=== PATIENT | male | born 1945 | race Hispanic/Latino ===

== ENCOUNTER 2017-08-18 01:03 | Inpatient (IN) | payer OTHER ==
[2017-08-18] MEDS ORDERED: Calcium Gluc 4.6 MEQ/10 ML (100 MG/ML) ONE (01:17)
[2017-08-18 01:24] LABS: Anion Gap 11 mmol/L (-14-95); Lactate 1.44 mmol/L (0.50-2.20); POC Est. GFR-MDRD-African-Amer Greater than 60; POC Estimated GFR-MDRD Greater than 60; T. Carbon Dioxide 31.6 mmol/L (1.0-85.0); pH (Venous) 7.413 (7.35-7.45); vO2 Saturation-calc 72.1 % (0.0-100.0)
[2017-08-18] MEDS ORDERED: Ondansetron HCl/PF 4 MG/2 ML Vial ONE (01:27)
[2017-08-18 01:38] LABS: PTT 28.3 SEC (22.9-36.1); Prothrombin Time 14.6 SEC (12.0-14.7)
[2017-08-18 01:46] LABS: Lactic Acid - Sepsis 2.1 mmol/L (0.5-2.2)
[2017-08-18 01:50] LABS: Troponin I 0.138 ng/mL (< 0.028)
[2017-08-18 01:53] LABS: #Basophils 0.1 thou/uL (0.0-0.2); #Eosinphils 0.3 thou/uL (0.0-0.7); #Lymphocytes 1.6 thou/uL (1.20-3.40); #Neutrophils 5.8 thou/uL (1.40-6.50); %Basophils 0.7 % (0.0-1.0); %Lymphocytes 17.9 % (21.0-51.0); %Monocytes 11.1 % (0.0-10.0); Anisocytosis SLIGHT = 6-15 cells (100X) (0-5/hpf); Hematocrit 44.9 % (42.0-52.0); Mean Platelet Volume 9.7 fL (7.4-10.4); Red Blood Cell (RBC) Count 4.62 mill/uL (4.70-6.10); White Blood Cell (WBC) Count 8.7 thou/uL (4.8-10.8)
[2017-08-18] MEDS ORDERED: Enoxaparin Sodium 80 MG/0.8 ML SYRINGE ONE (02:03)
[2017-08-18 02:38] LABS: ALT (SGPT) 56 U/L (8-55); AST (SGOT) 54 U/L (5-34); Alkaline Phosphatase 155 U/L (40-150); Anion Gap 11 mmol/L (10-20); BUN (Urea Nitrogen) 27 mg/dL (8.4-25.7); Bilirubin, Total 0.7 mg/dL (0.2-1.2); CK (CPK) 40 U/L (30-200); Calc. Creatinine Clearance 0 mL/min (70-130); Calcium 10.2 mg/dL (7.8-10.44); Carbon Dioxide 29 mmol/L (23-31); Chloride 105 mmol/L (98-107); Estimated GFR-MDRD 63; Globulin 2.6 g/dL (2.4-3.5); Lipase 13 U/L (8-78)
[2017-08-18] MEDS ORDERED: Ondansetron ODT 4 MG TAB SL PRN (03:30)
[2017-08-18] MEDS ORDERED: Acetaminophen 325 MG TAB PO PRN ×2 (03:30→03:53)
[2017-08-18] MEDS ORDERED: Ondansetron HCl/PF 4 MG/2 ML Vial IVP PRN ×2 (03:30→03:53)
[2017-08-18 03:45] VITALS: BMI 30.4
[2017-08-18] MEDS ORDERED: HumaLOG 300 UNITS/3 ML VIAL SC PRN ×2 (03:53)
[2017-08-18] MEDS ORDERED: Dextrose 50% Abboject 50 ML SYRINGE SLOW IVP PRN (03:53)
[2017-08-18] MEDS ORDERED: Dextrose 5% in Water 1,000 ML IV PRN (03:53)
[2017-08-18] MEDS ORDERED: Ondansetron ODT 4 MG TAB PO PRN (03:53)
--- NOTE | 2017-08-18 03:56 | ER ---
DATE OF SERVICE: 08/18/2017 Please refer to the patient's electronic medical record for further details of his visit. In summary, the patient presents from [facility] with a complaint of tachycardia and generalized weakness . He has some very mild chest pain as well. He reports that his symptoms have been present for 2 da ys and he has been monitored at the [facility] where they reported that he has had persistent t achycardia during that time frame. His rate has been in the 120-130 range. He states that his AICD fired approximately 3-4 days ago, near the onset of his current symptoms. It has not fired again sin ce then. On arrival, the patient is awake and alert, able to answer his name and in no respiratory distress. His monitor shows a wide-complex tachycardia without P waves. His 12-lead EKG reveals the same, with a prolonged QT segment as well. The patient was given calcium and a concern for possible hyperkalem ia, which actually converted him to a sinus rhythm for a brief period of time. Labs confirm a normal potassium, normal pH, and no significant electrolyte disturbance. During the time of sinus rhythm, a repeat EKG was performed, which shows a right bundle branch block morphology. This is new compared with prior tracing. His troponin was noted to be abnormal at 0.138, not consistent with non-ST elev ation [place], we will require trending. His BNP was elevated as well, with chest x-ray findings consiste nt with mild vascular congestion. He was not in respiratory distress and was not hypoxic at any poin t during his ER stay. His blood pressure was borderline on arrival and improved significantly when c onverted to a sinus rhythm. However, it was not less than 90 at any point. I do not suspect underly ing infectious process. I discussed the case with Dr. Marlon Rankin, the Cardiology Service, who recomme nds observational management without specific intervention at this point. I also discussed the case with Dr. Ritter of the Family Medicine Residency Service, who will admit the patient overnight. At t his time, the patient's blood pressure is 110/72, heart rate 123, and O2 sat is 98% on room air. He is stable at the time of admission, with a guarded prognosis given his multiple comorbidities. He is not stable for transport to [facility] in [place] because of the possibility of decompensation.
[2017-08-18] MEDS ORDERED: PROVENTIL INHALER 6.7 G (200 INHALATIONS) INH PRN (04:17)
[2017-08-18 05:38] LABS: Troponin I 0.184 ng/mL (< 0.028)
[2017-08-18] MEDS ORDERED: Beclomethasone 80 mcg 120 PUFF/8.7 GM AER INH SCH (06:30)
--- NOTE | 2017-08-18 07:15 | HP-2 ---
CODE STATUS: FULL. PRIMARY CARE PHYSICIAN: City call. ATTENDING: Dr. Krishan Rivera RESIDENT: Mary Ritter D.O. HISTORIAN: Patient. CHIEF COMPLAINT: AICD event/fast heart rate. HISTORY OF PRESENT ILLNESS: A 72-year-old male with past medical history of coronary artery disease, status post CABG 2 vessel and AICD placement. He was at [facility] with complaint of an AICD event back in July and again 2-3 days ago, along with a rapid heart rate. Per patient, has been feeling dizzy spells since July where he feels like he is going to pass out. Also reports an episode in July where his AICD shocked him. The patient denies feeling chest pain at this time or any palpitations. Again, on 08/14/2017, a couple of days ago, he felt his AICD shock him. Again, reports no symptoms at the time of this. Since then he reports generalized weakness and continues to have dizzy spells that cause him to feel like he is going to pass out. Denies chest pain or shortness of breath. Does report bilateral arm pain. EMS gave 25 mg of metoprolol and 600 mg 1 liter normal saline en route. When he got to the ED, he was found to have a wide complex tachycardia, rate of 130s. He received therapeutic Lovenox as well as normal saline, calcium gluconate and aspirin in the ED. Dr. Rankin was called and requested the patient be inpatient and reports she will follow up with the patient. PAST MEDICAL HISTORY: 1. Diabetes. 2. Hypertension. 3. Chronic obstructive pulmonary disease. 4. Depression. 5. Coronary artery disease, status post CABG and AICD. PAST SURGICAL HISTORY: 1. AICD placement 2013. 2. CABG 2 vessel. 3. Cholecystectomy. ALLERGIES: SULFA. MEDICATIONS: 1. Aspirin 81 mg daily. 2. Atorvastatin 80 mg daily. 3. Carvedilol 12.5 mg b.i.d. 4. Clopidogrel 75 mg daily. 5. Lasix 40 mg b.i.d. 6. Isosorbide mononitrate 30 mg daily. 7. Lisinopril 2.5 mg daily. 8. Magnesium oxide 400 mg daily. 9. Metoprolol 25 mg daily. 10. Novolin N 10 units in the morning, 7 units p.m. 11. Novolin R 4 units premeal. 12. Proventil 90 mcg p.r.n. 13. Qvar 80 mcg 1 puff b.i.d. 14. Sertraline 50 mg daily. SOCIAL HISTORY: Past tobacco use, quit 20 years ago, used to smoke 1-1/2 packs per day for about 20 years. Alcohol use; used to drink 3-4 whiskey drinks per day. Has not drank in "years". Denies drug use. REVIEW OF SYSTEMS: A 12-point review of systems was performed and found to be significant for denying fever and chills. No shortness of breath, no chest pain , no nausea or vomiting. No syncope. The patient does report palpitations, pain, bilateral arm pain and generalized weakness. All other systems are negative. PHYSICAL EXAMINATION: VITAL SIGNS: Blood pressure 110/72, pulse 123, respiratory rate 16, T-max 98.0 , pulse ox 98% on room air, current weight 84.82 kilograms. GENERAL: The patient is alert and oriented x1, no acute distress, well- nourished, appropriately interactive. EYES: PERRLA, EOMI. ENT: Oropharynx within normal limits. Mallampati 4. NECK: Supple, without lymphadenopathy. CARDIOVASCULAR: Tachycardia, no murmurs or gallops. Radial pulses 2+. RESPIRATORY: Normal effort, no retractions, clear to auscultation bilaterally. Lung sounds are distant. SKIN: Warm and dry. ABDOMEN: Soft, nontender, bowel sounds present. EXTREMITIES: No cyanosis or edema. MUSCULOSKELETAL: Structure within normal limits. Muscle strength 5/5 in upper and lower extremities. NEUROLOGIC: No focal deficits. GCS 15. PSYCHIATRIC: Appropriate. LABORATORY DATA: CBC performed, white blood cell count 8.7, hemoglobin 14.6, hematocrit 44.9, platelets 113, 67.3% neutrophils. MCV of 97.1. Chemistry: Sodium 141, potassium 4.4, chloride 105, CO2 29, BUN 27, creatinine 1.15, glucose 157, GFR 63, calcium 10.2, total protein 6.0, albumin 3.4, AST 54 , ALT 56, alkaline phosphatase 155, total bilirubin 0.4, 92.0. Coags; PTT 28.3. PT 14.6, INR 1.1. TSH 1.47, CK 40, Lipase 113, lactic acid 2.1. BNP 2125. CK-MB 1.7, troponin 0.138. VBG was performed, pH 7.4, CO2 47.2, and O2 38.0. CTA was negative for pulmonary embolus. Chest x-ray shows enlarged cardiac silhouette and possible vascular congestion, no pleural effusions. ASSESSMENT AND PLAN: 1. Wide complex tachycardia, stable V-tach versus supraventricular tachycardia with aberrancy. When patient transitioned to NSR, evidence of underlying right bundle branch block. Causes explored. Ruled out pulmonary embolus with negative CTA, could be due to an [id number] elevation myocardial infarction with indeterminate troponin's. The timing of this is uncertain, since patient reports symptoms in July. We will consult Dr. Rankin, Cardiology and await her recommendations. In the meantime, the patient's blood pressure is somewhat labile and low at 90 systolic, so hesitant to provide any medications that would likely lower blood pressure. 2. Non-ST elevation myocardial infarction, likely, the patient on therapeutic Lovenox. We will continue to trend troponins and CK-MB. Repeat EKG with next troponin draw. 3. Congestive heart failure. We will hold the home Lasix with low blood pressures. The patient denies shortness of breath or orthopnea. He has no signs on exam of fluid overload, so we will just watch this by elevated BNP and use gentle hydration. 4. Hypertension. Will hold home medications with the hypotension. 5. Elevated transaminases. We will repeat CMP in the morning. If continues to elevate or trend upwards consider hepatitis panel and right upper quadrant ultrasound, although the patient does have cholecystectomy. 6. Thrombocytopenia. We will repeat in the morning and follow. 7. Diabetes mellitus, Humalog and Levemir home doses. 8. Depression, home medications. 9. Chronic obstructive pulmonary disease. Home meds and DuoNebs p.r.n. 10. Prophylaxis. Patient on therapeutic Lovenox. No GI prophylaxis indicated at this time. DISPOSITION AND LENGTH OF HOSPITAL STAY: 1-2 days. Symptomatic medications will be provided. History and physical exam as well as management discussed with Dr. Krishan Rivera. RAJESH
--- NOTE | 2017-08-18 07:48 | RAD ---
PORTABLE CHEST 1 VIEW: Date: 08/18/17 Time: 0058 hours HISTORY: Tachycardia, dyspnea. FINDINGS/IMPRESSION: Comparison made with exam of 06/01/09. There are changes of median sternotomy. A left-sided pacemaker device is present. The heart size is n ormal. There is mild prominence of the pulmonary vascularity. No lobar consolidation, pneumothorax, f rank pulmonary edema, or large effusions are seen. POS: [facility]
--- NOTE | 2017-08-18 07:50 | CT ---
PRELIMINARY REPORT/[facility]/EMERGENCY AFTER HOURS PROCEDURE: EXAM: CT Angiography Chest With Intravenous Contrast EXAM DATE/TIME: Exam ordered 08/18/2017 3:11 AM CLINICAL HISTORY: 72 years old, male; Pain; Chest pain; Type not specified; Patient HX: R/O pe, chest pain TECHNIQUE: Axial computed tomographic angiography images of the chest with intravenous contrast using pulmonary embolism protocol. CONTRAST: 100 mL of ISOVUE administered intravenously. COMPARISON: No relevant prior studies available. FINDINGS: Pulmonary arteries: There is no evidence of peripheral filling defects within the pulmonary arterial circulation to suggest pulmonary embolism. Aorta: No acute findings. No thoracic aortic aneurysm. Lungs: There is RIGHT lung groundglass opacification suggestive of pneumonia in the appropriate clini mandy setting. Pleural space: Normal. No significant effusion. No pneumothorax. Heart: Normal. No cardiomegaly. No significant pericardial effusion. No evidence of RV dysfunction. Mediastinum: The trachea is normal. Thyroid: There is subcentimeter LEFT thyroid lobe nodule. Bones/joints: No acute fracture. No dislocation. There are sternal wires consistent with previous elisha rnotomy incision. Soft tissues: Normal. Lymph nodes: Normal. No enlarged lymph nodes. Gallbladder and bile ducts: There is incompletely visualized stranding within the gallbladder fossa. Tubes, lines and devices: A pacemaker device is present, and its leads are in appropriate position. IMPRESSION: 1. There is no CT evidence of acute pulmonary embolism. 2. There is RIGHT lung groundglass opacification suggestive of pneumonia in the appropriate clinical setting. 3. There is incompletely visualized stranding within the gallbladder fossa. If RIGHT upper quadrant p athology is suspected a dedicated CT or ultrasound may be helpful. Thank you for allowing us to participate in the care of your patient. Dictated and Authenticated by: Krishan Morillo MD 08/18/2017 3:53 AM Central Time ([place] & [place]) FINAL REPORT CT PULMONARY ANGIOGRAM WITH IV CONTRAST AND 3D POSTPROCESSING: I agree with the preliminary report given by Dr. Krishan Morillo of [employer]. POS: [facility]
[2017-08-18 08:32] LABS: Troponin I 0.213 ng/mL (< 0.028)
[2017-08-18] MEDS: Mometasone 100 MCG HFA INHALER INH SCH ×2 (08:41→19:00)
[2017-08-18] MEDS ORDERED: Aspirin 325 MG TAB PO SCH (09:00)
[2017-08-18] MEDS ORDERED: Enoxaparin Sodium 80 MG/0.8 ML SYRINGE SC SCH (09:00)
[2017-08-18] MEDS ORDERED: Ketorolac Tromethamine 30 MG/ML VIAL IVP SCH (09:00)
[2017-08-18] MEDS: HumaLOG 300 UNITS/3 ML VIAL SC SCH ×3 (09:54→17:46)
[2017-08-18] MEDS: Aspirin 81 mg Enteric Coated Tablet PO SCH (09:55)
[2017-08-18] MEDS: Atorvastatin Calcium 40 MG TAB PO SCH (09:58)
[2017-08-18] MEDS: Clopidogrel Bisulfate 75 MG TAB PO SCH (09:59)
[2017-08-18] MEDS: Magnesium Oxide 400 MG TAB PO SCH (10:00)
[2017-08-18] MEDS: Insulin Detemir 100 UNITS/ML 10 UNITS in Pre-Filled Syringe 1 EACH SC SCH (10:00)
[2017-08-18] MEDS ORDERED: Amiodarone HCl 450 MG in Dextrose 5% in Water 250 ML IVPB SCH ×2 (11:00)
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
[2017-08-18] MEDS ORDERED: ISOVUE-370 76%-LOCM 1 ML ONE (11:31)
[2017-08-18 11:43] LABS: Troponin I 0.301 ng/mL (< 0.028)
--- NOTE | 2017-08-18 11:55 | CON ---
DATE OF SERVICE: 08/18/2017 SERVICE: Pulmonary Medicine. REASON FOR CONSULTATION: [facility] patient. HISTORY OF PRESENT ILLNESS: Patient is a 72-year-old male with past medical history signifi cant for cardiomyopathy. He had an AICD in placed. He was in his usual state of health until about a week ago. He started having increasing cough productive of some white sputum. Either way, this pr ogressed a little bit. On 08/14/2017, the patient felt an ICD shock. He was having some lightheaded ness at that time. He is brought to the emergency department. He was subsequently placed in the [facility] for close observation. PAST MEDICAL HISTORY: 1. Coronary artery disease. 2. Hypertension. 3. Dyslipidemia. 4. Type 2 diabetes mellitus. 5. COPD. 6. Major depressive disorder. PAST SURGICAL HISTORY: 1. AICD placement. 2. Coronary artery bypass graft x2 vessels. 3. Cholecystectomy. ALLERGIES: SULFA. MEDICATIONS: List of his inpatient medications was reviewed. No updates were made at this time. SOCIAL HISTORY: The patient has a [id number] history of smoking, but quit over 20 years ago. He d oes not currently use any alcohol or illicit drugs as he is in custody of the retirement system. Prior t o that, he drinks 3-4 whiskeys on a daily basis. There is no exposure to chemicals, dust or asbestos . In the retirement system, he is exposed to tuberculosis. FAMILY HISTORY: Noncontributory. REVIEW OF SYSTEMS: General, head, ears, eyes, nose, throat, cardiovascular, respiratory, GI, , mus culoskeletal, neurologic and skin is negative except as mentioned in the HPI. PHYSICAL EXAMINATION: VITAL SIGNS: Afebrile, pulse 123, respirations 18, blood pressure 109/75, saturation 96% on room air . GENERAL: The patient is awake and alert, in no apparent distress. LUNGS: Decent air entry. Dependent crackles are minimal. HEART: Tachycardic and regular. ABDOMEN: Soft, nontender, nondistended, bowel sounds positive. MUSCULOSKELETAL: No cyanosis or clubbing. There is no pitting in the bilateral lower extremities. NEUROLOGIC: Grossly nonfocal. LABORATORY DATA: WBC 8.7, hemoglobin 14.6, and platelets 313,000. INR 1.1. A pH 7.41, pCO2 of 47 o n VBG. Basic metabolic profile is unremarkable with creatinine of 1.15. AST and ALT are marginally elevated. Lactate is negative. Blood sugars ranged from 136-157. Cardiac enzymes are generally guevara nding to 0.2. IMAGING: CTA of the chest demonstrates no evidence of acute pulmonary embolism. There is a patchy c entrally located ground glass opacification scattered throughout bilateral hilar lung regions. Sligh tly more predominant prominent on the right. Mediastinal windows did not demonstrate any significant pathology. The right ventricle and right atrium are small. There is reflux of contrast into the in ferior vena cava suggesting some degree of heart failure. ASSESSMENT: 1. Ventricular tachycardia, chronically stable. 2. Coronary artery disease. 3. Chronic systolic heart failure with no acute exacerbation. 4. Non-ST elevation myocardial infarction. 5. Chronic obstructive pulmonary disease without current exacerbation. PLAN: The patient will remain in the IMCU for the time being. Cardiology is currently following and has stopped QT prolonging agents. Amiodarone drip is being initiated. From my perspective, he is s table for transition to the floor because of V-TACH is stable. That being said, it is reasonable to watch him under close observation for another night.
[2017-08-18] MEDS: Amiodarone In Dextrose,Iso-Osm 200 ML IVPB SCH ×2 (12:07→17:42)
[2017-08-18 14:49] LABS: Troponin I 0.369 ng/mL (< 0.028)
[2017-08-18] MEDS ORDERED: Insulin Detemir 100 UNITS/ML 7 UNITS in Pre-Filled Syringe 1 EACH SC SCH (21:00)
[2017-08-18] MEDS ORDERED: Amiodarone HCl 150 MG, Admixture Fee 1 EACH in Dextrose 5% in Water 100 ML IVPB SCH ×3 (21:15)
[2017-08-18] MEDS ORDERED: Cyclobenzaprine 10 MG TAB PO PRN (22:54)
[2017-08-18] MEDS ORDERED: Lidocaine 2% PF 100 mg/5 ml Syringe IVP SCH (23:00)
[2017-08-18] MEDS ORDERED: Lidocaine 2 gm/D5W 500 ml 500 ML IVPB SCH (23:00)
[2017-08-18 23:27] LABS: Anion Gap 15 mmol/L (10-20); BUN (Urea Nitrogen) 33 mg/dL (8.4-25.7); Calc. Creatinine Clearance 71 mL/min (70-130); Calcium 9.3 mg/dL (7.8-10.44); Carbon Dioxide 23 mmol/L (23-31); Chloride 103 mmol/L (98-107); Estimated GFR-MDRD 59
[2017-08-19 00:37] VITALS: BP 123/83
[2017-08-19] MEDS ORDERED: Succinylcholine Chloride 20 MG/ML 10 ml SYRINGE FS ONE (01:00)
[2017-08-19] MEDS: Amiodarone In Dextrose,Iso-Osm 200 ML IVPB SCH ×2 (01:37→12:26)
[2017-08-19] MEDS ORDERED: CCU Electrolyte Replacement 1 EACH FS SCH (03:00)
[2017-08-19] MEDS ORDERED: Ventilator Sedation Protocol 1 EACH FS SCH (03:00)
[2017-08-19] MEDS ORDERED: Lorazepam 2 MG/ML VIAL SLOW IVP PRN (03:02)
[2017-08-19] MEDS ORDERED: Fentanyl 20 MCG/ML 250 ML IVPB SCH (03:02)
[2017-08-19] MEDS ORDERED: DISCONTINUE PREVIOUS NARCOTIC PAIN MEDICATIONS AND BENZODIAZEPINES FS SCH (03:02)
[2017-08-19] MEDS ORDERED: Morphine 4 MG/ML VIAL SLOW IVP PRN (03:03)
[2017-08-19] MEDS ORDERED: Potassium Phosphate 12 MMOL in Sodium Chloride 0.9% 250 ML 250 ML IV PRN (03:04)
[2017-08-19] MEDS ORDERED: Magnesium 2 GM/NS 0.9% 100 ML 2 GM in Premix Bag 1 BAG IVPB PRN (03:04)
[2017-08-19] MEDS ORDERED: Potassium Chloride 40 MEQ in Premix Bag 1 BAG IVPB PRN (03:04)
[2017-08-19] MEDS ORDERED: Potassium Phosphate 15 MMOL in Sodium Chloride 0.9% 250 ML 250 ML IV PRN (03:04)
[2017-08-19] MEDS ORDERED: Potassium Chloride 40 MEQ in Sodium Chloride 0.9% 250 ML 250 ML IVPB PRN (03:04)
[2017-08-19] MEDS ORDERED: Potassium Chloride 20 MEQ TAB PO PRN (03:04)
[2017-08-19] MEDS ORDERED: Potassium Phosphate 9 MMOL in Sodium Chloride 0.9% 100 ML IVPB PRN (03:04)
[2017-08-19] MEDS ORDERED: Magnesium Oxide 400 MG TAB PO PRN ×2 (03:04)
[2017-08-19] MEDS ORDERED: CCU ELECTROLYTE REPLACEMENT PROTOCOL FS PRN (03:04)
--- NOTE | 2017-08-19 03:35 | PDOC.EVN ---
Event Note - Event Note Event Note: ENDOTRACHEAL INTUBATION PROCEDURE NOTE INDICATION: sustained Vtach PROCEDURE WOODWINDS TEACHER: Mary Ritter DO ATTENDING PHYSICIAN: Antony Lucas CRNA., present during entire procedure CONSENT: Consent was obtained from patient prior to the procedure. Indications, risks, and benefits were explained at length. PROCEDURE SUMMARY: A time out was performed. The patient was placed on a cardiac exercise physiologist including continuous pulse oximetry. Rapid Sequence Intubation was conducted. The patient received 15 mg of Etomidate for induction and 100 mg of Succinylcholine for adequate paralysis. Cricoid pressure was maintained from time induction agent was given to time of cuff balloon inflation. Using a glidescope laryngoscope and a size 7.5 endotracheal tube with stylet, the patient was intubated on the 2nd attempt. The stylet was removed and cuff balloon was inflated. Appropriate endotracheal tube position was confirmed by direct visualization of vocal cord passage, fogging of the tube, CO2 colometric indicator and symmetric breath sounds. The tube was secured at 25 cm at the lips. Post intubation chest x-ray is pending at this time.
[2017-08-19] MEDS: Propofol 1,000 MG/100 ML VIAL IV PRN ×2 (03:36→11:42)
[2017-08-19 04:00] LABS: Oxyhemoglobin 95.9 % (94.0-97.0); Sodium 137 mmol/L (135-148)
[2017-08-19 04:02] LABS: Mechanical Tidal Volume 500 ml; Mode SIMV; Modified Allen's Test POSITIVE; Pressure Support 10 cmH2O; Vent YES
[2017-08-19 04:53] LABS: #Lymphocytes 0.8 thou/uL (1.20-3.40); #Monocytes 0.8 thou/uL (0.11-0.59); #Neutrophils 7.9 thou/uL (1.40-6.50); %Basophils 0.3 % (0.0-1.0); %Eosinophils 0.2 % (0.0-10.0); %Lymphocytes 8.5 % (21.0-51.0); %Monocytes 8.6 % (0.0-10.0); Hematocrit 43.9 % (42.0-52.0); Mean Platelet Volume 8.5 fL (7.4-10.4); Red Blood Cell (RBC) Count 4.53 mill/uL (4.70-6.10); White Blood Cell (WBC) Count 9.6 thou/uL (4.8-10.8)
[2017-08-19 05:31] LABS: ALT (SGPT) 105 U/L (8-55); AST (SGOT) 121 U/L (5-34); Alkaline Phosphatase 151 U/L (40-150); Anion Gap 16 mmol/L (10-20); BUN (Urea Nitrogen) 36 mg/dL (8.4-25.7); Bilirubin, Total 1.7 mg/dL (0.2-1.2); Calc. Creatinine Clearance 64 mL/min (70-130); Calcium 8.9 mg/dL (7.8-10.44); Carbon Dioxide 22 mmol/L (23-31); Chloride 102 mmol/L (98-107); Estimated GFR-MDRD 52; Globulin 2.9 g/dL (2.4-3.5); Protein, Total 6.2 g/dL (5.8-8.1)
[2017-08-19] MEDS: Mometasone 100 MCG HFA INHALER INH SCH (06:15)
[2017-08-19] MEDS: HumaLOG 300 UNITS/3 ML VIAL SC SCH ×2 (06:31→11:46)
[2017-08-19] MEDS ORDERED: Heparin 1000 UNIT/NS 500ML(OR) 1,000 ML ONE (07:02)
--- NOTE | 2017-08-19 07:41 | CON ---
DATE OF CONSULTATION: 08/18/2017 ELECTROPHYSIOLOGY CONSULTATION REPORT I am seeing Mr. 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 His probl ems are: 1. Sustained recurrent ventricular tachyarrhythmia. A. Repeated ICD discharges including in the beginning of June and July as well to a [facility] in [place] at that time. B. Recurrent ventricular tachycardia causing ICD discharge prompting this admission as well. C. ICD interrogation revealed a 33 VT1 zone and 25 VT2 zone arrhythmias, also requiring one shock. D. Currently, on amiodarone loading. ALLERGIES: SULFA. MEDICATIONS AT HOME: Include Tylenol, albuterol, amiodarone IV, aspirin, atorvastatin, clopidogrel, Lovenox 40 subcu, glucagon, insulin, Mag-Ox, Asmanex, ondansetron, sertraline. HOME MEDICATIONS: Did not include antiarrhythmic drugs. He was on metoprolol 25 mg daily, lisinopri l 2.5 mg daily, Imdur 30 mg daily, furosemide 40 mg daily, sertraline 50 mg daily, lactulose 30 mL b. i.d., ibuprofen, Motrin daily, hydrocortisone, insulin, Lipitor, carvedilol 12.5 mg twice a day, clop idogrel 75 mg daily, albuterol, and QVAR. SUBJECTIVE: Mr. Trivedi is here due to an ICD shock. He has had some ICD discharge back in July and also fell to the floor. He is getting dizzy spells. He did not completely pass out, though but was getting ready to. He has no chest pains associated with this at this time. No fever, chills, o r cough. No stroke-like symptoms. No neurological deficits. The rest of the 12-point review of sys tems is otherwise unremarkable. PAST MEDICAL HISTORY: As above. The patient has a prior history of myocardial infarction and origin al ICD implant 999. He had multiple generator changes, mostly in 2012. He did have prior VT episode s. SOCIAL HISTORY: The patient is a assisted inmate currently. No history of smoking, EtOH, or drug use. He used to smoke one-half pack per day for 20 years and he used to drink 3-4 whiskeys a day. Denie s drug use. OBJECTIVE DATA: VITAL SIGNS: Blood pressure 129/86, heart rate 112-130 in sinus rhythm, he is at 83, respirations 12 , the patient is afebrile at 98.8 degrees Fahrenheit. GENERAL: Reveals an alert and oriented man in shackles, in no apparent distress. NECK: Supple. Jugular veins are not distended. CHEST: Coarse without crackles. CARDIOVASCULAR: Heart sounds are regular to rate and rhythm. No murmur or gallop. ABDOMEN: Benign. Bowel sounds positive. EXTREMITIES: Lower extremities without edema, clubbing, or cyanosis. Left precordial ICD insertion site is well healed. SKIN: Without rash. MUSCULOSKELETAL: No joint swelling or deformities. NEUROLOGIC: The patient is nonfocal. DATABASE: The EKG is reviewed revealing sinus rhythm, right bundle branch block pattern, QRS duratio n 168 milliseconds. Subsequent EKG reveals a wide-complex tachycardia which is right bundle northwes t axis in morphology. This is markedly different to the baseline. The QRS rate is about 129 beats p er minute. The interrogation of his device revealed a [employer] VR single-chamber ICD with battery longevity about 3 years. Lead parameters are all adequate. The current programming is VVI 40, VT zone at 139 beats per minute monitored, VT2 zone is 150 beats per minute. With ATP therapies, the VF zone is 200 beats per minute. Again, 33 VT1 zone event and 25 VT2 zone event documented, a single shock was necessary mostly was pa ce terminated. The VT1 zone events were 139 beats per minute, VT2 zone events were up to 166 beats per minute. Thes e episodes seem to be occurring sinc3 08/14/2017, although indeed in the end of July, he had a co uple of episodes as well. LABORATORY DATA: The white count is 8.7, hemoglobin 14.6, platelet count is 113. The INR is 1.1. T he sodium is 141, potassium 4.4, BUN is 27, creatinine 1.15, the AST and ALT are 54 and 56, mildly el evated. The troponin I is 0.184 and 0.213. The BNP is 2125. ASSESSMENT AND PLAN: Mr. Trivedi is a 72-year-old man with a history of myocardial infarction, ische jasen cardiomyopathy, prior bypass surgery, and current implantable cardioverter-defibrillator in place , who seems to have been experiencing increasing frequency of ventricular tachyarrhythmia events back in early June after which he was treated in [place] in the [facility] and also underw ent a stent placement. More recently, he had recurrent events at the end of July, but now, he se ems to have very frequent episodes of ventricular tachycardia. There was monomorphic, reasonab ly well tolerated in the supine level. He has received some ATP therapies for the higher VT zones, t achyarrhythmias over 150 beats per minute just as the programming of the device dictated. On the ot er hand, he has been only monitored for a VT1 zone arrhythmias, now he has VT episodes at 129-130 uziel ts per minute level in the 125 beats per minute level I have observed which are clearly under the dev ice detection limits. He has been loaded with amiodarone so far that completely is suppressing arrh ythmias. ASSESSMENT AND PLAN: My plan would be at this point: 1. I agree with amiodarone, continue loading. Hopefully, these will eventually suppress the arrhyth mias. In the meantime, we will turn on the ATP therapies for the lower VT zone and lower detection r ate to 115 beats per minute. He might benefit from evaluation for VT ablation in a tertiary center i f especially the VT episodes are not fully suppressible. I suspect this might need to happen in [facility], hence he is an inmate. 2. Coronary artery disease, borderline troponin changes currently stable. He had a recent stent erick cement as per Dr. Lynn. 3. History of cardiomyopathy. We will assess left ventricular function. 4. Implantable cardioverter-defibrillator single chamber, currently well compensated. 5. Prior bundle branch block pattern. EKG with mild QT prolongation, possibly related to this, staronal le. Monitor. We will discuss with Dr. Lynn.
--- NOTE | 2017-08-19 07:42 | PDOC.FM ---
- Subjective Subjective: Pt w/ refractory V-tach on amio gtt overnight w/ AICD firing approx 20 times per nursing staff. Pt intubated and sedated per Cardiology and pt being wheeled to [facility] this AM. Heart rate stable this AM on sedation/intubation. No further episodes of v-tach s/p intubation/sedation. - Objective MAR Reviewed: Yes Vital Signs & Weight: Vital Signs (12 hours) Temp Pulse Resp BP Pulse Ox 08/19/17 04:00 15 08/19/17 03:04 98.7 F 79 15 98 08/19/17 00:00 98.7 F 79 18 123/83 99 08/18/17 20:00 97.7 F 83 20 98 Weight Weight 87.1 kg Most Recent Monitor Data Heart Rate from ECG 66 NIBP 99/62 NIBP BP-Mean 76 Respiration from ECG 14 SpO2 100 I&O: 08/18/17 08/19/17 08/20/17 06:59 06:59 06:59 Intake Total 173.6 Output Total 20 410 Balance -20 -236.4 Result Diagrams: 08/19/17 04:19 08/19/17 04:19 <Brian Barrios - Last Filed: 08/19/17 07:41> - Objective Vital Signs & Weight: Vital Signs (12 hours) Temp Pulse Resp BP Pulse Ox 08/19/17 10:00 14 08/19/17 04:00 15 08/19/17 03:04 98.7 F 79 15 98 08/19/17 00:00 98.7 F 79 18 123/83 99 Weight Weight 192 lb 0.362 oz Most Recent Monitor Data Heart Rate from ECG 59 NIBP 108/63 NIBP BP-Mean 79 Respiration from ECG 14 SpO2 100 I&O: 08/18/17 08/19/17 08/20/17 06:59 06:59 06:59 Intake Total 173.6 Output Total 20 410 Balance -20 -236.4 Result Diagrams: 08/19/17 04:19 08/19/17 04:19 <Osei Baldwin - Last Filed: 08/19/17 11:14> Phys Exam - Physical Examination intubated/sedated HEENT: PERRLA Respiratory: clear to auscultation bilateral Cardiovascular: RRR, no significant murmur Gastrointestinal: soft Musculoskeletal: pulses present seated/intubated <Brian Barrios - Last Filed: 08/19/17 07:41> Dx/Plan (1) Ventricular tachycardia Code(s): I47.2 - VENTRICULAR TACHYCARDIA Status: Acute Plan: Pt w/ refractory tachycardia into the 160's overnight w/ AICD firing 20+ times. Likely related to ischemic cardiomyopathy per cards. Intubated and sedated per speaking w/ cardiology overnight by night team Resolution of tachycardia this AM Pt being taken for cardiac catheterization this AM per cardiology Cont. w/ sedation/intubation Awaiting cardiology recs s/p cath for further medical management vs possible EP intervention (2) Diabetes Code(s): E11.9 - TYPE 2 DIABETES MELLITUS WITHOUT COMPLICATIONS Status: Acute Plan: Will hold regular insulin and transition to SSI w/ q6 hr accuchecks while pt NPO (3) COPD (chronic obstructive pulmonary disease) Status: Acute Plan: Intubated Will continue w/ usual home inhalers s/p extubation No evidence of acute exacerbation (4) CAD (coronary artery disease) Code(s): I25.10 - ATHSCL HEART DISEASE OF [place] CORONARY ARTERY W/O ANG PCTRS Status: Acute Plan: Cont. w/ aspirin and statin Restart beta daren per cardiology in setting of borderline hypotension <Brian Barrios - Last Filed: 08/19/17 07:41> Attending Addendum - Attending Addendum I personally evaluated the patient and discussed the management with Dr. Barrios I agree with the History, Examination, Assessment and Plan documented above with any addition or exceptions noted below. Recurrent V Tach yesterday with multiple ICD shocks. He is on an amiodarone drip now. He was on lidocaine, but that was stopped. Cath this morning did not show significant occlusion. He is intubated. We will continue current level of support. Once stable transfer to [facility]. <Osei Baldwin - Last Filed: 08/19/17 11:14>
[2017-08-19] MEDS ORDERED: Enoxaparin Sodium 40 MG/0.4 ML SYRINGE SC SCH (09:00)
--- NOTE | 2017-08-19 09:42 | RAD ---
1 VIEW CHEST: Date: 08/19/17 COMPARISON: 08/18/17. HISTORY: Status post intubation. FINDINGS: Endotracheal tube terminates 2.6 cm above the radha. Nasogastric tube is identified. Nasogastric tub e appears to extend beyond the diaphragm. Distal tip is not seen. Better interrogation with a 1 view abdomen radiograph is recommended. Sternotomy wires are noted. Atherosclerosis of aorta. Pulmonary ve ssels and hilum are normal. Costophrenic angles are clear. No masses or consolidation. No pneumothora x or osseous abnormalities. Stable left-sided defibrillator. IMPRESSION: Lines and tubes as above. 1 view abdomen radiograph is recommended to confirm the distal tip of the n asogastric tube. Nasogastric tube does appear to extend beyond the diaphragm. CODE T. POS: [facility]
[2017-08-19] MEDS ORDERED: Iopamidol 370 76% 100 ML VIAL ONE (11:14)
[2017-08-19] MEDS ORDERED: Iopamidol 370 76% 50 ML VIAL FS ONE (11:14)
[2017-08-19] MEDS: Clopidogrel Bisulfate 75 MG TAB PO SCH (11:43)
[2017-08-19] MEDS: Atorvastatin Calcium 40 MG TAB PO SCH (11:43)
[2017-08-19] MEDS: Magnesium Oxide 400 MG TAB PO SCH (11:44)
[2017-08-19] MEDS: Aspirin 81 mg Enteric Coated Tablet PO SCH (11:44)
[2017-08-19] MEDS: Insulin Detemir 100 UNITS/ML 10 UNITS in Pre-Filled Syringe 1 EACH SC SCH (11:45)
[2017-08-19] MEDS: Metoprolol Tartrate 5 MG/5 ML VIAL IVP SCH ×2 (11:45→16:29)
--- NOTE | 2017-08-19 11:46 | PRG ---
DATE OF SERVICE: 08/19/2017 SERVICE: Pulmonary Medicine. INTERVAL HISTORY: The patient is doing great from a respiratory standpoint. Overnight, he got shock multiple times. As such, he subsequently got intubated just to decrease his adrenergic dry. Otherwi se, there have been no overnight events. His hemodynamics and respiratory status has been stable and he been shocked since being intubated. PHYSICAL EXAMINATION: VITAL SIGNS: Afebrile, pulse 59, blood pressure 108/63, respirations 14, saturation 100% on room air . GENERAL: The patient is awake and alert, on a sedation holiday. He is moving all 4 extremities and has no apparent distress. HEENT: Normocephalic, atraumatic. Sclerae are white, conjunctivae pink. NECK: Endotracheal tube in good position. HEART: Normal rate, regular. ABDOMEN: Soft, nontender, and nondistended. Bowel sounds positive. MUSCULOSKELETAL: No cyanosis or clubbing. No pitting in the bilateral lower extremities. LUNGS: Excellent air entry with no prolonged expiratory phase. GENITOURINARY: Deleon catheter in place. NEUROLOGIC: Grossly nonfocal. LABORATORY DATA: WBC 9.6, hemoglobin 14.2, platelets 109,000. INR 1.1. A pH 7.38, pCO2 38, pO2 107 . This was on 50% FiO2 at that time. Creatinine 1.36. Basic metabolic profile is otherwise unremar kable. Total bilirubin 1.7, AST is gently. AST and ALT are gently up trending. Troponin 0.5, which is also trending upward. IMAGING: Chest x-ray demonstrates good position of the endotracheal tube, roughly 2.5 cm above the l evel of the radha. AICD is in place. Previous sternotomy changes. No focal consolidation is ident ified. There is an enteric catheter coursing midline, but I cannot see where it terminates. ASSESSMENT: 1. Ventricular tachycardia, recurrent. 2. Coronary artery disease. 3. Chronic systolic heart failure, currently euvolemic. 4. Non-ST elevation myocardial infarction. 5. Chronic obstructive pulmonary disease without current exacerbation. PLAN: The patient is doing well on mechanical ventilation. Our plan is to transition him over to [place] so that he can be seen by EP there. Rate control medications otherwise will be continued. I have made multiple adjustments to the ventilator to determine a little more work of breathing over t he patient. CRITICAL CARE TIME: 30 minutes.
[2017-08-19] MEDS ORDERED: Lidocaine 2 gm/D5W 500 ml 500 ML ONE (15:33)
[2017-08-19] MEDS ORDERED: Lidocaine 2% PF 100 mg/5 ml Syringe ONE (15:33)
[2017-08-19] MEDS ORDERED: Lidocaine 2 gm/D5W 500 ml 500 ML IVPB SCH (16:00)
--- NOTE | 2017-08-19 16:15 | PRG ---
DATE OF SERVICE: 08/19/2017 Mr. Trivedi had a heart catheterization earlier today that showed widely patent arteries. He had bee n maintaining sinus rhythm since intubation earlier last night. He went back into ventricular tachyc ardia at 132 beats per minute. We restarted his lidocaine drip. He is given a bolus. He would not come out. We also increased the rate and he would not come out. So we decided to give him one shock emergently. He was given a single synchronized shock at 100 joules, successfully converted him from VT at 130 beats a minute back to sinus rhythm in the 70s. He was given a bolus of propofol before t hat and he was very sedated for the procedure, tolerated it very well. He will now be transferred ov er to [facility] for left ventricular ablation, hopefully improving his VT. He may also need hemodynamic assist with either balloon pump versus ECMO or an Impella. At this time, he is stable f or transfer, blood pressure in the 110/63, heart rate 83 in sinus. Over 45 minutes were spent at bedside with Critical Care.
[2017-08-19 16:44] VITALS: TEMP 98.5
--- NOTE | 2017-08-21 08:07 | DIS-2 ---
DATE OF ADMISSION: 08/18/2017 DATE OF DISCHARGE: 08/19/2017 ADMITTING ATTENDING: Krishan Rivera M.D. DISCHARGE ATTENDING: Osei Baldwin M.D. CONSULTS: 1. Clarence Martines M.D. 2. Melvin Palacios M.D. 3. Dillon Lynn M.D. PROCEDURES: 1. CT of the chest with and without contrast that showed no evidence of acute pulmonary embolus. 2. Left heart catheterization which showed occluded right coronary artery disease, patent stents to the LAD, patent stents to circumflex artery. 3. Echocardiogram showed an ejection fraction of 15-20%. Grade 3/3 diastolic dysfunction, left vent ricular size severely increased, left atrial dilation. Moderate mitral regurgitation, mild tricuspid regurgitation, mildly elevated pulmonary artery pressure of 48 mmHg. PRIMARY DIAGNOSES: 1. Ventricular tachycardia. 2. Ischemic cardiomyopathy. SECONDARY DIAGNOSES: 1. Diabetes mellitus. 2. Coronary artery disease. 3. Chronic obstructive pulmonary disease. 4. Heart failure with reduced ejection fraction with automatic implantable cardioverter/defibrillato r. DISCHARGE MEDICATIONS: 1. Qvar 2 puff inhaler b.i.d. 2. Proventil HFA 2 puffs inhalation q.6 hours p.r.n. 3. Magnesium oxide 400 mg p.o. daily. 4. Plavix 75 mg p.o. daily. 5. Aspirin 81 mg daily. 6. Lipitor 40 mg p.o. daily. 7. Sertraline 50 mg p.o. daily. 8. Preparation-H one application topically q.d. 9. Regular insulin 4 units subcu b.i.d. with meals. 10. Insulin NPH 10 units subcutaneously daily. 11. Lactulose 30 mL p.o. b.i.d. p.r.n. 12. Acetaminophen 650 mg p.o. t.i.d. p.r.n. 13. Flexeril 10 mg p.o. t.i.d. p.r.n. DISCONTINUED MEDICATIONS: None. HISTORY OF PRESENT ILLNESS AND HOSPITAL COURSE: The patient is a 72-year-old male who was transferre d from [facility] with complaint of dizziness and palpitations. He was found to have ventricular tachycardia. He was admitted to the Intermediate Care Unit where his heart rate and rhythm could be monitored. Cardiology was consulted. The patient was started on amiodarone drip. Electrophysiology was also consulted for possible ablation; however, it was though that he may need to be transferred to a tertiary center for evaluation of VT ablation. Overnight the patient has refractory V-tach on a miodarone drip and his AICD is noted to have fired approximately 20 times. After speaking with [facility] eric, the primary medical team spoke with Cardiology and afterward the patient was intubated and sed ated. He had a left heart catheterization the morning after admission which showed the above finding s and transfer to [place] was arranged to [facility]. After left heart catheterization the patient went back into V-tach, he was restarted on a lidocaine drip and he was given a single synchronized shock a t 100 joules which converted him from V-tack back to sinus rhythm prior to transfer to [facility]. DISCHARGE DISPOSITION: Critical. DISCHARGE INSTRUCTIONS: 1. Location: [facility]. 2. Diet: Consistent carbohydrate, heart healthy. 3. Activity: Strict bedrest. 3. Followup: The patient will follow up with his primary medical team after discharge from [facility].
--- NOTE | 2017-08-22 05:44 | EKG ---
Test Reason : Blood Pressure : / mmHG Vent. Rate : 131 BPM Atrial Rate : 070 BPM P-R Int : 000 ms QRS Dur : 184 ms QT Int : 420 ms P-R-T Axes : 000 -85 070 degrees QTc Int : 620 ms Wide QRS tachycardia Left axis deviation Non-specific intra-ventricular conduction block Inferior infarct , age undetermined Abnormal ECG When compared with ECG of 18-AUG-2017 01:30, (Unconfirmed) Wide QRS tachycardia has replaced Sinus rhythm Vent. rate has increased BY 44 BPM Confirmed by MANDI SHEPHERD ([id number]) on 08/22/2017 5:44:30 AM Referred By: JOSH Confirmed By:MANDI SHEPHERD
== END 2017-08-19 16:36 | disposition short-term general hospital (02) | DRG 281 ==
LOC: ERS 01:03 → EEVIPCON 01:03 → IMCU/EMU 02:00 → CCU 08-19 01:37
PROVIDERS: ADMIT Family Medicine; ATTEND Family Medicine
PROC: 4A023N7 Measurement of Cardiac Sampling and Pressure, Left Heart, Percutaneous Approach (ICD-10-PCS; principal; 2017-08-19)
PROC: 5A1935Z Respiratory Ventilation, Less than 24 Consecutive Hours (ICD-10-PCS; 2017-08-19)
PROC: B2131ZZ Fluoroscopy of Multiple Coronary Artery Bypass Grafts using Low Osmolar Contrast (ICD-10-PCS; 2017-08-19)
PROC: B2111ZZ Fluoroscopy of Multiple Coronary Arteries using Low Osmolar Contrast (ICD-10-PCS; 2017-08-19)
PROC: B2151ZZ Fluoroscopy of Left Heart using Low Osmolar Contrast (ICD-10-PCS; 2017-08-19)
PROC: 5A2204Z Restoration of Cardiac Rhythm, Single (ICD-10-PCS; 2017-08-19)
PROC: 0BH17EZ Insertion of Endotracheal Airway into Trachea, Via Natural or Artificial Opening (ICD-10-PCS; 2017-08-19)
DX: I47.2 Ventricular tachycardia (principal); I21.4 Non-ST elevation (NSTEMI) myocardial infarction; I50.22 Chronic systolic (congestive) heart failure; J44.9 Chronic obstructive pulmonary disease, unspecified; D69.6 Thrombocytopenia, unspecified; I11.0 Hypertensive heart disease with heart failure; I08.1 Rheumatic disorders of both mitral and tricuspid valves; I45.10 Unspecified right bundle-branch block; Z95.810 Presence of automatic (implantable) cardiac defibrillator; E11.9 Type 2 diabetes mellitus without complications; Z79.4 Long term (current) use of insulin; Z87.891 Personal history of nicotine dependence; F32.9 Major depressive disorder, single episode, unspecified; Z88.2 Allergy status to sulfonamides; I25.5 Ischemic cardiomyopathy; I25.10 Atherosclerotic heart disease of native coronary artery without angina pectoris; Z95.1 Presence of aortocoronary bypass graft
CPT/HCPCS: 36415; 36416; 71010; 71275; 76942; 80053; 82330; 82550; 82553; 82803; 82805; 83605; 83690; 83735; 83880; 84443; 84484; 85025; 85347; 85610; 85730; 86704; 86706; 86708; 86803; 87340; 92978; 93005; 93010; 93306; 93459; 94002; 94664; 96372; 96374; C1769; J0282; J1644; J1650; J1815; J2001; J2060; J2405; J2704; J7070